=== PATIENT | female | born 1970 | race Caucasian/White ===

== ENCOUNTER 2019-11-04 08:15 | Outpatient (CLI) | payer OTHER, SELFPAY ==
--- NOTE | ~2019-11-04 | MR_ITS ---
EXAMINATION: MR shoulder RT wo con DATE: 11/04/2019 09:34 INDICATION: Severe right shoulder pain and weakness TECHNIQUE: Magnetic resonance imaging (MRI) of the right shoulder was performed without intravenous c ontrast. Sequences included axial PD-weighted FS FSE, coronal oblique PD-weighted FS FSE, coronal obl ique T2-weighted FS FSE, sagittal PD-weighted FS FSE, and sagittal T1-weighted SE. COMPARISON: Right shoulder radiographs dated 01/29/2019 FINDINGS: Coracoacromial arch: The acromion undersurface is curved in morphology (type II). There is mild thickening of the coracoac romial ligament. Mild acromioclavicular osteoarthritis with small inferiorly directed osteophytes.. Rotator cuff: Mild subscapularis and infraspinatus tendinopathy without discrete tear. Moderate supraspinatus tendi nopathy with bursal sided fraying along the distal 2 cm the tendon with disorganized appearing bursal sided tendon fibers but without a discrete retracted tear margin or measurable fluid signal intensit y tear defect. Normal rotator cuff muscle bulk and signal. Biceps tendon, glenoid labrum and glenohumeral cartilage: Long head of the biceps tendon is normal. Glenoid labrum is normal. Glenohumeral cartilage is normal. Fluid: Physiologic amount of fluid in the glenohumeral joint and biceps tendon sheath. No loose osteochondra l bodies. Small moderate amount of fluid in the subacromial/subdeltoid bursa consistent with moderate bursitis. Bones: Normal marrow signal with no edema, fracture or pathologic marrow replacing process. Small erosion at the completion of the superior and middle facets of the greater tuberosity likely related to chronic rotator cuff disease. IMPRESSION: 1. Mild to moderate rotator cuff tendinopathy most severe at the supraspinatus tendon where there is associated bursal sided fraying. 2. Moderate subacromial/subdeltoid bursitis. 3. Mild acromioclavicular osteoarthritis. Reviewed, dictated and finalized at location A.
== END 2019-11-04 08:16 | disposition home or self-care (01) ==
LOC: ANHIMG 08:25
PROVIDERS: Visit Provider Orthopaedic Surgery
DX: M75.81 Other shoulder lesions, right shoulder (principal); M19.011 Primary osteoarthritis, right shoulder; M75.51 Bursitis of right shoulder
CPT/HCPCS: 73221

== ENCOUNTER 2019-11-21 04:32 | Outpatient (CLI) | payer OTHER, SELFPAY ==
[2019-11-21 18:08] LABS: SARS-CoV-2 RNA PCR Negative
== END 2019-11-21 04:33 | disposition home or self-care (01) ==
LOC: ANHCOVIDDT 04:32
PROVIDERS: Visit Provider Orthopaedic Surgery
DX: Z01.812 Encounter for preprocedural laboratory examination (principal); Z11.59 Encounter for screening for other viral diseases
CPT/HCPCS: 87635; C9803; U0003

== ENCOUNTER 2019-11-21 09:10 | Outpatient (CLI) | payer OTHER, SELFPAY ==
--- NOTE | 2019-11-21 09:22 | ECG_ITS ---
Measurements Intervals [place] Rate: 71 P: 14 FL: 152 QRS: 69 QRSD: 85 T: 56 QT: 366 QTc: 399 Interpretive Statements SINUS RHYTHM NORMAL ECG Electronically Signed On 11-21-2019 13:14:35 CDT by Ramon Krueger D.O.
[2019-11-21 10:22] LABS: Hematocrit 41.2 % (37.0-47.0); Hemoglobin 13.1 g/dL (12.0-15.0)
[2019-11-21 10:33] LABS: Blood Urea Nitrogen 22 mg/dL (7-17); Calcium 9.2 mg/dL (8.4-10.2); Carbon Dioxide 28 mmol/L (22-30); Chloride 104 mmol/L (98-107); Estimated Glomerular Filt Rate > 60; Glucose 90 mg/dL (65-105); Potassium 4.4 mmol/L (3.4-5.0); Sodium 138 mmol/L (137-145)
== END 2019-11-21 09:11 | disposition home or self-care (01) ==
PROVIDERS: Visit Provider Anesthesiology
DX: Z51.81 Encounter for therapeutic drug level monitoring (principal); I10 Essential (primary) hypertension; D64.9 Anemia, unspecified
CPT/HCPCS: 36415; 80048; 85014; 85018; 87635; 93005; C9803; U0003

== ENCOUNTER 2019-11-24 00:23 | Day surgery (SDC) | payer OTHER, SELFPAY ==
[2019-11-16 11:10] VITALS: BMI 43.9
--- NOTE | 2019-11-23 13:07 | WPDANESEPPF ---
Anes - Initial Pre Proc Eval Procedure: Operation Date: 11/24/19 11:00 Proposed Procedures p Right Shoulder Arthroscopy, Subacromial Decompression - Mani Mathur MD Date/Time: 11/23/19 13:07 Surgeon: Mani Mathur MD Pre Op Diagnosis: Rt Shoulder Rotator Cuff Impingement/ Tendonitis Patient Data Age: 49 Gender: F Height: 1.57 m Weight: 108.86 kg Allergies Allergy/AdvReac Type Severity Reaction Status Date / Time celecoxib Allergy Unknown Itching Verified 11/16/19 11:12 Home Medications Medication Instructions Recorded Confirmed Type citalopram 20 mg tablet 20 mg PO DAILY 06/08/19 11/16/19 History ferrous sulfate 325 mg (65 mg 325 mg PO DAILY 06/08/19 11/16/19 History iron) tablet hydrochlorothiazide 25 mg tablet 25 mg PO DAILY 06/08/19 11/16/19 History lisinopril 5 mg tablet 5 mg PO DAILY 06/08/19 11/16/19 History naproxen 500 mg tablet 500 mg PO BID 06/08/19 11/16/19 History levothyroxine 50 mcg PO DAILY 11/16/19 11/16/19 History ECG: Date of Service: 11/21/19 Procedure(s): CA 12 lead EKG Accession Number(s): [id number] cc: ~ Measurements Intervals [place] Rate: 71 P: 14 [place]: 152 QRS: 69 QRSD: 85 T: 56 QT: 366 QTc: 399 Interpretive Statements SINUS RHYTHM NORMAL ECG Electronically Signed On 11-21-2019 13:14:35 CDT by Ramon Krueger D.O. Dictated By: Ramon Krueger DO 11/21/19 0933 Patient hx anesthesia problems: none Family hx anesthesia problems: none PMFSH Past Medical History Medical History (Updated 11/23/19 @ 13:09 by Gus Pickett MD) Anemia Depression Hypertension Hypothyroidism Impingement syndrome of right shoulder Morbid obesity with BMI of 40.0-44.9, adult Multiple sclerosis Right shoulder tendonitis Surgical History Surgical History History of section History of cholecystectomy (~1993) History of laparoscopic adjustable gastric banding (~2006) Status post right partial knee replacement (~10/26/16) Social History Social History Smoking status: Never smoker Alcohol intake: current Anes - Eval Final PreProcedure Day of Procedure 11/23/19 13:07 Patient weight: morbidly obese Heart: regular rate and rhythm Lungs: clear to auscultation and normal air movement Airway: Mallampati scale class II Neurological: alert and oriented Last oral intake: >/= 8 hours ASA classification: III Emergent: no Anesthetic plan: proceed Anesthesia type and monitoring: general ETT Informed Consent: The patient's anesthetic plan and its attendant risks and benefits were discussed with the patient/family/POA. Questions were solicited and answers provided to the satisfaction of the patient/family/POA.
[2019-11-24] VITALS (9 sets, daily range): BP systolic 116–144; BP diastolic 70–90; PULSE 70–90; RESP 10–20; TEMP 36.3–36.8; O2SAT 91–100
[2019-11-24] MEDS: LACTATED RINGERS 1,000 ML 30 ML IV CONT ×2 (10:00→14:11)
--- NOTE | 2019-11-24 11:05 | WPDHPUPDATE1 ---
History and Physical Update Update Date/Time: 11/24/19 11:05 History and Physical has been reviewed, including an updated exam of the patient. There are NO changes in the patient's condition. Risks, benefits, and alternatives have been discussed and questions answered. Patient agrees to proceed with procedure.
[2019-11-24] MEDS: ceFAZolin 2 GM/D5W 50 ML 2 GM/50 ML BAG IVPB (11:12)
[2019-11-24] MEDS: BUPIVACAINE/EPINEPHRINE 0.5% 30 ML VIAL INFILTRATE (12:01)
[2019-11-24] MEDS: ONDANSETRON INJ 4 MG/2 ML VIAL IV PUSH (13:58)
--- NOTE | 2019-11-24 14:12 | PM.PROC ---
Procedure Note - Detailed Date of procedure: 11/24/19 Pre-op diagnosis: Rt Shoulder Rotator Cuff Impingement/ Tendonitis 1. High-grade partial thickness bursal side rotator cuff tear 2. Subacromial impingement syndrome Post-op diagnosis: same Procedure performed: 1. Arthrosocopic rotator cuff repair. 2. Arthroscopic subacromial decompression. Description of procedure: The supraspinatus demonstrated grade 2/3 bursal side rotator cuff tear. Clear evidence of impingement on the undersurface of the acromion was observed. There was a significant anterolateral acromial spur. The tear was mildly delaminated, but did not show any significant damage to the articular half of the supraspinatus. The bursal side tear was repaired with a single arthroscopic bone tunnel. A [id number] suture was placed followed by 3 sutures through the tunnel. The tear appeared anatomic and nicely reduced to the anatomic footprint. Implants: [employer] nephew suture tape x4. ArthroTunneler bone tunnel device used to create a single bone tunnel arthroscopically. Anesthesia: GETA Surgeon: Mani Mathur MD Estimated blood loss (mL): 10 Complications: None Condition: stable Disposition: PACU Findings: Operative detail: Preoperative antibiotics were given. The patient was bought brought to the operating room. A general anesthetic was administered. The patient was carefully positioned in the beach chair position. The head and neck were carefully positioned. The non operative extremity was also carefully positioned. The shoulder was prepped and draped in the usual sterile fashion. Examination was performed. Standard posterior and anterior arthroscopic portals were established. Inflow achieved with the arthroscopic pump using saline and epinephrine. The glenohumeral joint was carefully inspected. No intraarticular treatment was required. The biceps tendon appeared normal. He was pulled slightly into the joint. There was some mild hyperemia but no significant tendinosis. Subscapularis supraspinatus and infraspinatus appeared normal. Articular cartilage was normal. The superior labrum was also normal. No significant contracture or capsulitis. No loose bodies. Attention was turned to the subacromial space. A complete bursectomy was performed. The bursa did appear to be thickened. There was evidence of clear impingement on the undersurface of the acromion. The supraspinatus showed significant bursal side fraying; in fact partial-thickness tearing significantly up to 50% thickness. The rotator cuff and footprint were lightly debrided. The arthroscopic bur was used to perform a subacromial decompression with acromioplasty. The tear configuration was carefully assessed. A [id number] suture was passed to converge the anterior and posterior margin of the tear. This was not tied until the other sutures were passed. At this point, 1 tunnel was created. The ArthroTunneler technique was utilized. Three sutures were passed through each tunnel. All sutures were then passed through the cuff tissue. The sutures were tied arthroscopically. The arthroscopic instruments were removed. The wounds were closed with 3-0 Monocryl subcuticular suture and steri strips. There were no complications. A sling was applied and the patient brought to the recovery room.
--- NOTE | 2019-11-24 17:08 | SUR.PHASEII ---
Patient offered a pain pill about 45 minutes before d/c and declined. Then after patient got dressed she asked for a pain pill since she lives about 40 minutes away. Patient and , Kang, told that next pain pill could be taken in 4-6 hours from discharge.
== END 2019-11-24 16:10 | disposition home or self-care (01) ==
PROVIDERS: Visit Provider Orthopaedic Surgery
PROC: (CPT 29805; principal; 2019-11-24 11:00)
DX: M75.101 Unspecified rotator cuff tear or rupture of right shoulder, not specified as traumatic (principal); M75.41 Impingement syndrome of right shoulder; I10 Essential (primary) hypertension; E03.9 Hypothyroidism, unspecified; G35 Multiple sclerosis; D64.9 Anemia, unspecified; F32.9 Major depressive disorder, single episode, unspecified; E66.01 Morbid (severe) obesity due to excess calories; Z68.42 Body mass index [BMI] 45.0-49.9, adult
CPT/HCPCS: 29827; 29826; A4565; A9270; J0330; J0690; J1100; J1170; J2250; J2370; J2405; J2704; J3010; J7120

== ENCOUNTER 2023-09-16 10:40 | Outpatient (CLI) | payer OTHER, SELFPAY ==
--- NOTE | ~2023-09-16 | MR_ITS ---
EXAMINATION: MR knee LT wo con DATE: 09/16/2023 11:20 INDICATION: Left knee pain TECHNIQUE: Magnetic resonance imaging (MRI) of the left knee was performed without intravenous contra st. Sequences included coronal PD-weighted FSE, coronal PD-weighted FS FSE, sagittal T2-weighted FSE , sagittal PD-weighted FS FSE and axial PD weighted fat saturated FSE. COMPARISON: None. FINDINGS: Medial compartment: Complex medial meniscal tear with full-thickness radial tear at the lateral aspect of the posterior h orn and with longitudinal horizontal tear plane extending to the inferior articular surface near the free edge of the posterior body and posterior horn. There is partial thickness chondral ulceration an d fissuring in place involving greater than 50% the cartilage thickness along the anterior to central weightbearing medial femoral condyle. There is minimal subarticular edema-like signal change underly ing small region of deep or chondral ulceration at the anterolateral most margin of the medial femora l condyle. There is mild partial-thickness cartilage loss with relatively smooth chondral surface saqib ng the anterior aspect of the medial tibial plateau. Lateral compartment: Lateral meniscus is normal. Articular cartilage is normal. Patellofemoral compartment: Partial-thickness chondral fissuring along the medial patellar facet. Trochlear cartilage is normal. Ligaments and tendons: Anterior and posterior cruciate ligaments are normal. The medial collateral ligament and fibular dana ateral ligament complex are normal. The extensor mechanism is normal. The visualized medial and later al hamstring tendons as well as the iliotibial band are normal. Fluid: Minimal left knee joint effusion. No intra-articular loose osteochondral bodies identified. There is a collection of 3 small loose bodies surrounding by small amount of fluid in the popliteal recess. Osseous/other: Bone alignment is normal. No fracture or pathologic marrow replacing process. IMPRESSION: 1. Complex medial meniscal tear including full thickness radial tear near the posterior root. 2. Mild medial and patellofemoral osteoarthritis with small region of high-grade chondral malacia at the anterolateral most weightbearing medial femoral condyle and additional moderate grade chondromala philip at the weight bearing medial femoral condyle, the medial tibial plateau and medial patellar facet . Reviewed, dictated and finalized at location A. IMPRESSION: 1. Complex medial meniscal tear including full thickness radial tear near the p osterior root. 2. Mild medial and patellofemoral osteoarthritis with small region of high-grad e chondral malacia at the anterolateral most weightbearing medial femoral condy le and additional moderate grade chondromalacia at the weight bearing medial fe moral condyle, the medial tibial plateau and medial patellar facet.
== END 2023-09-16 10:41 ==
LOC: GOSHIMG 10:41
PROVIDERS: PCP Internal Medicine; Visit Provider Physician Assistant Surgical
DX: S83.232A Complex tear of medial meniscus, current injury, left knee, initial encounter (principal); X58.XXXA Exposure to other specified factors, initial encounter; M17.12 Unilateral primary osteoarthritis, left knee
CPT/HCPCS: 73721

== ENCOUNTER → 2023-09-23 03:52 | Day surgery (SDC) | payer OTHER, SELFPAY ==
[2023-09-23] VITALS (8 sets, daily range): BP systolic 108–143; BP diastolic 64–75; PULSE 76–94; RESP 10–16; TEMP 37.1; O2SAT 96–100; BMI 45.8
--- NOTE | 2023-09-23 08:36 | PC.NURSE ---
Report to the Outpatient Waiting Room, entrance under the green pavilion located off [facility], at time _1300_ on date _[id number]_. Planned Procedure Time: _1500_. Time changes happen often and if your time is changed the preop area will call you the afternoon before. - You and your visitor will be asked to self-screen and do not enter if you have any COVID symptoms. - A mask is optional within the hospital at this time. Patients may have clear liquids (water, carbonated beverages, clear teas, apple juice) until 3 hours prior to surgery with a maximum of 20 ounces. - No food from midnight until time of surgery Patient has already taken all of her medications today prior to this phone call. Please no make-up, nail croatian, hairspray, perfume, deodorant, or body powder the day of surgery. No jewelry (including any body piercings) or valuables the day of surgery, leave them at home. Please take a shower or bath the night before, or the morning of, surgery with an antibacterial soap. Wear comfortable, loose fitting clothing. - Jewelry must be removed prior to entering the operating room. Rings and piercings that are not removed may be cut off. - The hospital will not accept responsibility for valuables. - Please leave all valuables, including medications, at home the day of surgery. If you are going home after surgery, a licensed wedding transportation driver must drive you home. - NO public transportation without another adult if you receive anesthesia. - We recommend that an adult stay with you for 24 hours following discharge. - We also recommend that you do not drive, make important decision, drink alcoholic beverages, or take any drugs that were not prescribed by your health care provider for at least 24 hours after your discharge time. Follow any additional instructions given to you from your surgeon. If you or anyone in your household have experienced Covid symptoms in the past week, please notify your surgeon or the nurse liaison at the phone number below for possible testing. Telephone instructions given to _Sujatha__and asked if any additional questions and then verbalized understanding. Patient advised to call surgeon office or pre surgery nurse liaison [phone] if any additional questions.
--- NOTE | 2023-09-23 11:24 | WPDHPUPDATE1 ---
History and Physical Update Update Date/Time: 09/23/23 11:24 History and Physical has been reviewed, including an updated exam of the patient. There are NO changes in the patient's condition. Risks, benefits, and alternatives have been discussed and questions answered. Patient agrees to proceed with procedure.
[2023-09-23] MEDS: ACETAMINOPHEN 500 MG TABLET 1000 MG PO (13:15)
--- NOTE | 2023-09-23 13:17 | ECG_ITS ---
SEE SCANNED COPY FOR CONFIRMED REPORT MTDD
[2023-09-23] MEDS: LACTATED RINGERS 1,000 ML 30 ML IV CONT ×2 (13:50→16:25)
[2023-09-23 14:03] LABS: Hematocrit 40.9 % (37.0-47.0); Hemoglobin 12.9 g/dL (12.0-15.0)
[2023-09-23 14:14] LABS: Anion Gap 7 mmol/L (4-12); Blood Urea Nitrogen 17 mg/dL (7-17); Calcium 9.6 mg/dL (8.4-10.2); Carbon Dioxide 28 mmol/L (22-30); Chloride 105 mmol/L (98-107); Estimated CRCL calculation 83 ml/min; Estimated Glomerular Filt Rate > 60; Glucose 85 mg/dL (65-110); Potassium 4.1 mmol/L (3.4-5.0); Sodium 140 mmol/L (137-145)
[2023-09-23] MEDS: KETOROLAC 15 MG/ML VIAL (*BKC) IV PUSH (14:24)
--- NOTE | 2023-09-23 14:44 | WPDANESEPPF ---
Anes - Initial Pre Proc Eval Procedure: Operation Date: 09/23/23 15:00 Proposed Procedures p Left Knee Arthroscopy - Mani Mathur MD Date/Time: 09/23/23 14:44 Surgeon: Mani Mathur MD Pre Op Diagnosis: left knee medial meniscal tear Patient Data Age: 53 Gender: F Height: 1.57 m Weight: 114.2 kg Last Vital Signs Temp 37.1 C 09/23/23 14:02 Pulse 87 09/23/23 14:02 Resp 16 09/23/23 14:02 BP 143/72 H 09/23/23 14:02 Pulse Ox 99 09/23/23 14:02 O2 Del Method Room Air 09/23/23 14:02 Allergies Allergy/AdvReac Type Severity Reaction Status Date / Time celecoxib Allergy Severe Itching Verified 09/23/23 13:05 Home Medications Medication Instructions Recorded Confirmed Type citalopram 20 mg tablet (Celexa) 20 mg PO DAILY 06/08/19 09/23/23 History ferrous sulfate 325 mg (65 mg 325 mg PO DAILY 06/08/19 09/23/23 History iron) tablet lisinopril 5 mg tablet 5 mg PO DAILY 06/08/19 09/23/23 History levothyroxine 50 mcg tablet 50 mcg PO DAILY 11/16/19 09/23/23 History hydrocodone 5 mg-acetaminophen 325 1 - 2 tablet PO Q4-6H PRN pain #30 09/23/23 Rx mg tablet tabs meloxicam 7.5 mg tablet 7.5 mg PO DAILY 09/23/23 09/23/23 History Laboratory Tests 09/23/23 13:19 Hgb 12.9 g/dL (12.0-15.0) Hct 40.9 % (37.0-47.0) Sodium 140 mmol/L (137-145) Potassium 4.1 mmol/L (3.4-5.0) Chloride 105 mmol/L (98-107) Carbon Dioxide 28 mmol/L (22-30) Anion Gap 7 mmol/L (4-12) BUN 17 mg/dL (7-17) Creatinine 0.80 mg/dL (0.7-1.0) Estim Creat Clear Calc 83 ml/min Estimated GFR > 60 (59 - ) Glucose 85 mg/dL (65-110) Calcium 9.6 mg/dL (8.4-10.2) Patient hx anesthesia problems: none Family hx anesthesia problems: none Results Review: All pre-operative results and documents have been reviewed as part of the pre-operative evaluation. [facility] Past Medical History Medical History Anemia Depression Hypertension Hypothyroidism Impingement syndrome of right shoulder Morbid obesity with BMI of 40.0-44.9, adult Multiple sclerosis Right shoulder tendonitis Surgical History Surgical History History of section History of cholecystectomy (~1993) History of laparoscopic adjustable gastric banding (~2006) Status post right partial knee replacement (~10/26/16) Family History Family History Grandparent Family history of rheumatoid arthritis Mother Family history of osteoarthritis Social History Social History Smoking status: Never smoker Alcohol intake: current Do You Feel Safe in your Home?: Yes Lack of Transportation: No Lack of Food: Never True Current Housing: I Have Housing Concerned About Future Housing: No Difficulty Paying Gas/Electric Bills: No Difficulty Paying for Meds: No Currently Unemployed: No Education: Associate Degree Difficulty w/ Childcare or Family Care: No Living arrangements: with family Spiritual care concerns: No Anes - Eval Final PreProcedure Day of Procedure 09/23/23 14:44 Patient weight: morbidly obese Heart: regular rate and rhythm Lungs: clear to auscultation Airway: Mallampati scale class II Neurological: alert and oriented Last oral intake: >/= 8 hours ASA classification: III Emergent: no Anesthetic plan: proceed Anesthesia type and monitoring: general LMA and standard monitoring Results Review: All pre-operative results and documents have been reviewed as part of the pre-operative evaluation. Informed Consent: The patient's anesthetic plan and its attendant risks and benefits were discussed with the patient/family/POA. Questions were solicited and answers provided to the satisfaction of the patient/family/POA.
[2023-09-23] MEDS: ceFAZolin 2 GM/D5W 50 ML 2 GM/50 ML BAG IVPB (15:32)
[2023-09-23] MEDS: BUPIVACAINE/EPINEPHRINE 0.5% 50 ML VIAL 20 ML INFILTRATE (15:55)
--- NOTE | 2023-09-23 16:53 | P.OP_ITS ---
Procedure Note - Detailed Date of Procedure 09/23/23 Pre-op Diagnosis left knee medial meniscal tear Post-op Diagnosis Same Procedure Performed Arthroscopic partial medial meniscectomy, left knee. Surgeon Mani Mathur MD Anesthesia General Findings Complex posterior horn tear. Medial femur chondromalacia grade 2, medial tibia grade 1. Lateral femur chondromalacia grade 0, lateral tibia grade 0. Patellar grade 0, trochlea grade 0. Description of Procedure The patient was identified and the surgical site confirmed and signed in the preoperative holding area. Antibiotics were started per protocol, and the patient was brought to the operative room and transferred to the OR table. A general anesthetic was administered. Supine position with the operative lower extremity position in the leg morel after placement of a well padded tourniquet. The leg support was lowered and the contralateral limb was supported with a soft bolster. The knee was prepped and draped in the usual sterile fashion. A time-out was performed. The portal sites were marked and infiltrated with 0.5% Marcaine 20 mL. The limb was exsanguinated and the tourniquet inflated to 300 mL Hg. Standard inferolateral and inferomedial portals were established. Inflow was obtained with the saline pump. The camera was introduced. Diagnostic inspection of the joint was accomplished. The meniscus was debrided with the arthroscopic shaver and punches until stable. The radiofrequency probe was also used for further d?bridement. The arthroscopic instruments were removed. The tourniquet released and wounds closed with subcutaneous 4-0 Monocryl absorbable suture. Steri strips and a manohar rile dressing were applied. A light elastic wrap was placed. The patient was extubated and brought to the recovery room in stable condition. Estimated Blood Loss 5 Drains No Complications No immediate complications Condition Stable Disposition PACU [facility] Billing Surgery - Charge Forward: Surgery Billing
[2023-09-23] MEDS: fentaNYL CITRATE INJ (*CRX) 100 MCG/2 ML VIAL 25 MCG IV PUSH ×4 (17:02→17:09)
[2023-09-23] MEDS: oxyCODONE HCL (*CRX) 5 MG TAB IR PO (17:44)
== END | disposition home or self-care (01) ==
PROVIDERS: PCP Internal Medicine; Visit Provider Orthopaedic Surgery
PROC: (CPT 29870; principal; 2023-09-23 15:00)
DX: S83.232A Complex tear of medial meniscus, current injury, left knee, initial encounter (principal); M94.262 Chondromalacia, left knee; I10 Essential (primary) hypertension; D64.9 Anemia, unspecified; F32.A Depression, unspecified; E03.9 Hypothyroidism, unspecified; G35 Multiple sclerosis; E66.01 Morbid (severe) obesity due to excess calories; Z68.42 Body mass index [BMI] 45.0-49.9, adult; Z79.891 Long term (current) use of opiate analgesic; Z98.890 Other specified postprocedural states; Z98.84 Bariatric surgery status; Z90.49 Acquired absence of other specified parts of digestive tract
CPT/HCPCS: 29881; 36415; 80048; 85014; 85018; 93005; A9270; J0690; J1100; J1170; J1885; J2250; J2371; J2405; J3010; J7120